=== PATIENT | male | born 1945 | race Caucasian/White ===

== ENCOUNTER 2019-10-31 12:00 | Inpatient (IN) ==
[2019-10-31] MEDS ORDERED: methylPREDNISolone 125 MG/2 ML VIAL IVP ONE (12:15)
[2019-10-31] MEDS ORDERED: Ipratropium/Albuterol Neb 3 ML IH ONE (12:15)
[2019-10-31] MEDS ORDERED: Isovue-370 500 ML BOTTLE IVP ONE (12:16)
[2019-10-31 12:36] LABS: INR 1.1; Prothrombin Time 12.5 Seconds (9.4-12.1)
[2019-10-31 12:39] LABS: Activated Partial Thrombo Time 31.5 Seconds (26.0-36.0)
[2019-10-31 12:52] LABS: Hematocrit 51.7 % (37.5-50.1); Hemoglobin 18.1 g/dL (12.9-16.9); Lymphocytes # 1.9 K/mcL (0.6-4.6); Mean Corpuscular Volume 91.5 fL (83.0-100.0); Mean Platelet Volume 11.4 fL (9.4-12.4); Monocytes # 0.4 K/mcL (0.0-1.3); Platelet Count 145 K/mcL (140-400); Red Blood Count 5.65 M/mcL (4.19-5.50); Red Cell Distribution Width 12.7 % (11.5-14.5); White Blood Count 4.6 K/mcL (4.3-11.1)
[2019-10-31 12:57] LABS: BUN/Creatinine Ratio 23 (6-26); Blood Urea Nitrogen 20 mg/dL (8-23); Carbon Dioxide 26 mEq/L (23-29); Chloride 95 mEq/L (98-107); Glucose 155 mg/dL (70-105); Osmolality,Calculated 288 (280-300); Potassium 3.8 mEq/L (3.5-5.1); Sodium 136 mEq/L (136-145); Troponin I < 0.03 ng/mL (< 0.04); eGFR For African Americans > 60 (> 60); eGFR For Non-African Americans > 60 (> 60)
[2019-10-31] MEDS ORDERED: 0.9 % Sodium Chloride 1,000 ML IVC ONE ×2 (13:14→14:49)
[2019-10-31 13:59] LABS: Neutrophils # 2.3 K/mcL (1.6-8.9); Reactive Lymphocytes Present (Not Present)
[2019-10-31 14:00] LABS: Platelet Estimate Normal (Normal)
[2019-10-31] MEDS ORDERED: Aspirin 81 MG TAB.CHEW PO STA (14:51)
[2019-10-31] MEDS ORDERED: Vancomycin (wt based) 1,000 MG VIAL IVPB SCH (15:00)
[2019-10-31] MEDS ORDERED: Naloxone 0.4 MG/ML INJ IVP PRN (15:51)
[2019-10-31] MEDS ORDERED: Ipratropium/Albuterol Neb 3 ML IH PRN (15:53)
[2019-10-31] MEDS ORDERED: Piperacillin/Tazobactam 3.375 GM in 0.9 % Sodium Chloride Mini Bag 100 ML IVPB ONE (16:00)
[2019-10-31] MEDS: 0.9 % Sodium Chloride 1,000 ML IVC SCH (18:01)
[2019-10-31] MEDS: Ipratropium/Albuterol Neb 3 ML IH SCH ×2 (18:28→22:34)
[2019-10-31 20:09] LABS: Adenovirus Not Detected (Not Detect); Bordetella Pertussis Not Detected (Not Detect); Chlamydophila pneumoniae Not Detected (Not Detect); Coronavirus 229E Not Detected (Not Detect); Coronavirus HKU1 Not Detected (Not Detect); Coronavirus NL63 Not Detected (Not Detect); Coronavirus OC43 Not Detected (Not Detect); Human Metapneumovirus Not Detected (Not Detect); Human Rhinovirus/Enterovirus Not Detected (Not Detect); Influenza A Subtype 2009 H1 Not Detected (Not Detect); Influenza B Not Detected (Not Detect); Mycoplasma pneumoniae Not Detected (Not Detect); Parainfluenza Virus 1 Not Detected (Not Detect); Parainfluenza Virus 2 Not Detected (Not Detect); Parainfluenza Virus 3 Not Detected (Not Detect); Parainfluenza Virus 4 Not Detected (Not Detect); Respiratory Syncytial Virus Not Detected (Not Detect)
[2019-11-01 02:02] LABS: BUN/Creatinine Ratio 24 (6-26); Blood Urea Nitrogen 17 mg/dL (8-23); Calcium 7.8 mg/dL (8.6-10.3); Carbon Dioxide 22 mEq/L (23-29); Chloride 104 mEq/L (98-107); Glucose 236 mg/dL (70-105); Osmolality,Calculated 287 (280-300); Potassium 3.9 mEq/L (3.5-5.1); Sodium 134 mEq/L (136-145); eGFR For African Americans > 60 (> 60); eGFR For Non-African Americans > 60 (> 60)
[2019-11-01] MEDS: Ipratropium/Albuterol Neb 3 ML IH SCH ×4 (03:47→21:23)
[2019-11-01] MEDS: 0.9 % Sodium Chloride 1,000 ML IVC SCH (04:33)
[2019-11-01 04:55] LABS: Bilirubin,Urine Negative (Negative); Blood,Urine Negative (Negative); Clarity,Urine Clear (Clear); Color,Urine Yellow (Yellow); Glucose,Urine (UA) 250 mg/dL (Normal); Ketones,Urine 15 mg/dL (Negative); Leukocyte Esterase,Urine Negative (Negative); Nitrite,Urine Negative (Negative); Protein,Urine Negative (Neg-Trace); Specific Gravity,Urine > 1.030 (1.010-1.025); Urobilinogen,Urine Normal (Normal)
[2019-11-01] MEDS: MethylPREDNISolone 40 MG/ML VIAL IVP SCH ×2 (05:28→18:13)
[2019-11-01] MEDS: Insulin LISPRO 300 UNITS/3 ML VIAL SQ SCH ×4 (10:11→22:20)
[2019-11-01] MEDS: Lisinopril 20 MG TABLET PO SCH (12:10)
[2019-11-01] MEDS: risperiDONE 0.25 MG TABLET PO SCH (12:10)
[2019-11-01] MEDS: Loratadine 10 MG TABLET PO SCH (12:13)
[2019-11-01] MEDS: Aspirin 81 MG TAB.CHEW PO SCH (12:13)
[2019-11-01] MEDS: Piperacillin/Tazobactam 3.375 GM in 0.9 % Sodium Chloride Mini Bag 100 ML IVPB SCH ×2 (12:13→20:02)
[2019-11-01] MEDS: *HR* Heparin 5,000 UNIT/ML VIAL SQ SCH ×2 (14:22→22:24)
[2019-11-01] MEDS: Budesonide/Formoterol 160/4.5 1 PUFF INH IH SCH ×2 (16:05→21:23)
[2019-11-01] MEDS ORDERED: Acetaminophen 325 MG TABLET PO PRN (19:47)
[2019-11-02] MEDS: Ipratropium/Albuterol Neb 3 ML IH SCH ×4 (03:34→21:54)
[2019-11-02] MEDS: Piperacillin/Tazobactam 3.375 GM in 0.9 % Sodium Chloride Mini Bag 100 ML IVPB SCH ×3 (04:19→20:44)
[2019-11-02] MEDS: *HR* Heparin 5,000 UNIT/ML VIAL SQ SCH ×2 (06:00→15:06)
[2019-11-02] MEDS: Insulin LISPRO 300 UNITS/3 ML VIAL SQ SCH ×4 (08:32→20:45)
[2019-11-02] MEDS ORDERED: Benzonatate 100 MG CAPSULE PO PRN (09:23)
[2019-11-02] MEDS: risperiDONE 0.25 MG TABLET PO SCH (10:28)
[2019-11-02] MEDS: Lisinopril 20 MG TABLET PO SCH (10:28)
[2019-11-02] MEDS: predniSONE 20 MG TABLET PO SCH (10:28)
[2019-11-02] MEDS: Aspirin 81 MG TAB.CHEW PO SCH (10:28)
[2019-11-02] MEDS: Loratadine 10 MG TABLET PO SCH (10:29)
[2019-11-02] MEDS: Budesonide/Formoterol 160/4.5 1 PUFF INH IH SCH ×2 (11:00→21:54)
[2019-11-02] MEDS ORDERED: Furosemide 20 MG/2 ML VIAL IVP ONE (11:22)
[2019-11-03] MEDS: Ipratropium/Albuterol Neb 3 ML IH SCH ×4 (03:29→21:44)
[2019-11-03] MEDS: *HR* Heparin 5,000 UNIT/ML VIAL SQ SCH ×4 (04:49→22:21)
[2019-11-03] MEDS: Piperacillin/Tazobactam 3.375 GM in 0.9 % Sodium Chloride Mini Bag 100 ML IVPB SCH ×3 (04:58→20:01)
[2019-11-03] MEDS: Insulin LISPRO 300 UNITS/3 ML VIAL SQ SCH ×4 (07:30→21:16)
[2019-11-03] MEDS: Aspirin 81 MG TAB.CHEW PO SCH (07:35)
[2019-11-03] MEDS: Lisinopril 20 MG TABLET PO SCH (07:35)
[2019-11-03] MEDS: risperiDONE 0.25 MG TABLET PO SCH (07:35)
[2019-11-03] MEDS: predniSONE 20 MG TABLET PO SCH (07:35)
[2019-11-03] MEDS: Loratadine 10 MG TABLET PO SCH (07:35)
[2019-11-03 08:11] LABS: ABG Base Excess 3 mEq/L (-2 to 3); ABG HCO3 26 mEq/L (21-27); ABG Oxygen Saturation 90 % (95-98); ABG PCO2 33 mmHg (35-45); ABG PO2 52 mmHg (85-104); ABG TCO2 27 mEq/L (20-26)
[2019-11-03 09:31] LABS: Basophils % 0.2 %; Hematocrit 40.8 % (37.5-50.1); Immature Granulocytes % 0.7 % (0-4); Lymphocytes # 0.6 K/mcL (0.6-4.6); Lymphocytes % 13.5 %; Mean Corpuscular Hemoglobin 32.2 pg (28.0-33.3); Mean Corpuscular Volume 89.5 fL (83.0-100.0); Monocytes # 0.2 K/mcL (0.0-1.3); Monocytes % 5.4 %; Platelet Count 141 K/mcL (140-400); Red Blood Count 4.56 M/mcL (4.19-5.50); Red Cell Distribution Width 12.6 % (11.5-14.5); Segmented Neutrophils % 80.2 %; White Blood Count 4.4 K/mcL (4.3-11.1)
[2019-11-03 09:45] LABS: BUN/Creatinine Ratio 23 (6-26); Blood Urea Nitrogen 17 mg/dL (8-23); Calcium 8.2 mg/dL (8.6-10.3); Carbon Dioxide 24 mEq/L (23-29); Chloride 99 mEq/L (98-107); Glucose 149 mg/dL (70-105); Osmolality,Calculated 278 (280-300); Potassium 3.6 mEq/L (3.5-5.1); Sodium 132 mEq/L (136-145); eGFR For African Americans > 60 (> 60); eGFR For Non-African Americans > 60 (> 60)
[2019-11-03 10:10] LABS: Hemoglobin 14.7 g/dL (12.9-16.9); Neutrophils # 3.5 K/mcL (1.6-8.9)
[2019-11-03 10:19] LABS: Platelet Estimate Normal (Normal); Reactive Lymphocytes Present (Not Present)
[2019-11-03] MEDS: Budesonide/Formoterol 160/4.5 1 PUFF INH IH SCH ×2 (10:39→21:44)
[2019-11-03 14:52] LABS: ABG Base Excess 3 mEq/L (-2 to 3); ABG HCO3 27 mEq/L (21-27); ABG Oxygen Saturation 91 % (95-98); ABG PCO2 36 mmHg (35-45); ABG PH 7.48 pH Units (7.32-7.45); ABG PO2 57 mmHg (85-104); ABG TCO2 28 mEq/L (20-26)
[2019-11-04] MEDS: Ipratropium/Albuterol Neb 3 ML IH SCH ×4 (04:12→21:31)
[2019-11-04] MEDS: *HR* Heparin 5,000 UNIT/ML VIAL SQ SCH ×3 (05:07→22:59)
[2019-11-04] MEDS: Piperacillin/Tazobactam 3.375 GM in 0.9 % Sodium Chloride Mini Bag 100 ML IVPB SCH ×3 (05:07→20:22)
[2019-11-04] MEDS: Insulin LISPRO 300 UNITS/3 ML VIAL SQ SCH ×4 (08:09→21:24)
[2019-11-04] MEDS: predniSONE 20 MG TABLET PO SCH (08:10)
[2019-11-04] MEDS: Aspirin 81 MG TAB.CHEW PO SCH (08:10)
[2019-11-04] MEDS: risperiDONE 0.25 MG TABLET PO SCH (08:10)
[2019-11-04] MEDS: Loratadine 10 MG TABLET PO SCH (08:10)
[2019-11-04] MEDS: Lisinopril 20 MG TABLET PO SCH (08:10)
[2019-11-04] MEDS: Budesonide/Formoterol 160/4.5 1 PUFF INH IH SCH ×2 (10:29→21:32)
[2019-11-05] MEDS: Ipratropium/Albuterol Neb 3 ML IH SCH ×4 (04:04→21:49)
[2019-11-05] MEDS: *HR* Heparin 5,000 UNIT/ML VIAL SQ SCH ×3 (06:24→21:39)
[2019-11-05] MEDS: Insulin LISPRO 300 UNITS/3 ML VIAL SQ SCH ×4 (09:29→21:35)
[2019-11-05] MEDS: Loratadine 10 MG TABLET PO SCH (09:35)
[2019-11-05] MEDS: Aspirin 81 MG TAB.CHEW PO SCH (09:35)
[2019-11-05] MEDS: levoFLOXacin 750 MG TABLET PO SCH (09:35)
[2019-11-05] MEDS: Lisinopril 20 MG TABLET PO SCH (09:35)
[2019-11-05] MEDS: risperiDONE 0.25 MG TABLET PO SCH (09:35)
[2019-11-05] MEDS: predniSONE 20 MG TABLET PO SCH (09:36)
[2019-11-05] MEDS: Budesonide/Formoterol 160/4.5 1 PUFF INH IH SCH ×2 (10:04→21:49)
[2019-11-06 02:20] LABS: Basophils % 0.3 %; Eosinophils % 0.2 %; Hematocrit 44.2 % (37.5-50.1); Hemoglobin 15.6 g/dL (12.9-16.9); Immature Granulocytes % 0.8 % (0-4); Lymphocytes # 0.9 K/mcL (0.6-4.6); Lymphocytes % 13.8 %; Mean Corpuscular HGB Conc 35.3 g/dL (31.6-35.5); Mean Corpuscular Hemoglobin 32.2 pg (28.0-33.3); Mean Corpuscular Volume 91.3 fL (83.0-100.0); Mean Platelet Volume 10.9 fL (9.4-12.4); Monocytes # 0.4 K/mcL (0.0-1.3); Neutrophils # 4.9 K/mcL (1.6-8.9); Platelet Count 264 K/mcL (140-400); Red Blood Count 4.84 M/mcL (4.19-5.50); Red Cell Distribution Width 12.7 % (11.5-14.5); Segmented Neutrophils % 77.9 %; White Blood Count 6.3 K/mcL (4.3-11.1)
[2019-11-06 02:54] LABS: Platelet Estimate Normal (Normal); Reactive Lymphocytes Present (Not Present)
[2019-11-06] MEDS: Ipratropium/Albuterol Neb 3 ML IH SCH ×6 (03:29→22:54)
[2019-11-06] MEDS: *HR* Heparin 5,000 UNIT/ML VIAL SQ SCH ×3 (05:50→21:15)
[2019-11-06] MEDS: Insulin LISPRO 300 UNITS/3 ML VIAL SQ SCH ×4 (08:00→21:16)
[2019-11-06] MEDS: Budesonide/Formoterol 160/4.5 1 PUFF INH IH SCH (10:30)
[2019-11-06 10:35] LABS: BUN/Creatinine Ratio 29 (6-26); Blood Urea Nitrogen 22 mg/dL (8-23); Calcium 8.7 mg/dL (8.6-10.3); Carbon Dioxide 28 mEq/L (23-29); Chloride 99 mEq/L (98-107); Glucose 201 mg/dL (70-105); Osmolality,Calculated 293 (280-300); Potassium 3.6 mEq/L (3.5-5.1); Sodium 137 mEq/L (136-145); eGFR For African Americans > 60 (> 60); eGFR For Non-African Americans > 60 (> 60)
[2019-11-06] MEDS ORDERED: Azithromycin 250 MG TABLET PO SCH (11:00)
[2019-11-06] MEDS ORDERED: Isovue-370 500 ML BOTTLE IVP ONE (11:01)
[2019-11-06] MEDS ORDERED: Albuterol 2.5 MG/3 ML NEBULIZER IH PRN (11:03)
[2019-11-06] MEDS: Aspirin 81 MG TAB.CHEW PO SCH (11:29)
[2019-11-06] MEDS: Lisinopril 20 MG TABLET PO SCH (11:29)
[2019-11-06] MEDS: Loratadine 10 MG TABLET PO SCH (11:29)
[2019-11-06] MEDS: predniSONE 20 MG TABLET PO SCH (11:29)
[2019-11-06] MEDS: risperiDONE 0.25 MG TABLET PO SCH (11:30)
[2019-11-06] MEDS: Doxycycline 100 MG CAPSULE PO SCH ×2 (11:30→21:15)
[2019-11-06] MEDS: levoFLOXacin 750 MG TABLET PO SCH (14:52)
[2019-11-07 01:54] LABS: Hematocrit 44.3 % (37.5-50.1); Hemoglobin 15.1 g/dL (12.9-16.9); Mean Corpuscular HGB Conc 34.1 g/dL (31.6-35.5); Mean Corpuscular Hemoglobin 32.6 pg (28.0-33.3); Mean Corpuscular Volume 95.7 fL (83.0-100.0); Platelet Count 271 K/mcL (140-400); Red Blood Count 4.63 M/mcL (4.19-5.50); Red Cell Distribution Width 12.8 % (11.5-14.5); White Blood Count 7.6 K/mcL (4.3-11.1)
[2019-11-07 02:23] LABS: BUN/Creatinine Ratio 29 (6-26); Blood Urea Nitrogen 22 mg/dL (8-23); Calcium 8.9 mg/dL (8.6-10.3); Carbon Dioxide 25 mEq/L (23-29); Chloride 101 mEq/L (98-107); Glucose 151 mg/dL (70-105); Osmolality,Calculated 284 (280-300); Potassium 4.3 mEq/L (3.5-5.1); Sodium 134 mEq/L (136-145); eGFR For African Americans > 60 (> 60); eGFR For Non-African Americans > 60 (> 60)
[2019-11-07] MEDS: Ipratropium/Albuterol Neb 3 ML IH SCH ×6 (03:38→23:12)
[2019-11-07] MEDS: *HR* Heparin 5,000 UNIT/ML VIAL SQ SCH ×3 (05:50→21:00)
[2019-11-07] MEDS: Loratadine 10 MG TABLET PO SCH (08:06)
[2019-11-07] MEDS: risperiDONE 0.25 MG TABLET PO SCH (08:07)
[2019-11-07] MEDS: Lisinopril 20 MG TABLET PO SCH (08:08)
[2019-11-07] MEDS: Doxycycline 100 MG CAPSULE PO SCH ×2 (08:08→20:58)
[2019-11-07] MEDS: Aspirin 81 MG TAB.CHEW PO SCH (08:08)
[2019-11-07] MEDS: predniSONE 20 MG TABLET PO SCH (08:08)
[2019-11-07] MEDS: Insulin LISPRO 300 UNITS/3 ML VIAL SQ SCH ×4 (08:09→22:11)
[2019-11-07] MEDS ORDERED: Furosemide 20 MG TABLET PO PRN (09:50)
[2019-11-07 10:17] LABS: INR 1.2; Prothrombin Time 13.5 Seconds (9.4-12.1)
[2019-11-07 11:29] LABS: Adenovirus Not Detected (Not Detect); Bordetella Pertussis Not Detected (Not Detect); Chlamydophila pneumoniae Not Detected (Not Detect); Coronavirus 229E Not Detected (Not Detect); Coronavirus HKU1 Not Detected (Not Detect); Coronavirus NL63 Not Detected (Not Detect); Coronavirus OC43 Not Detected (Not Detect); Human Metapneumovirus Not Detected (Not Detect); Human Rhinovirus/Enterovirus Not Detected (Not Detect); Influenza A Subtype 2009 H1 Not Detected (Not Detect); Influenza B Not Detected (Not Detect); Mycoplasma pneumoniae Not Detected (Not Detect); Parainfluenza Virus 1 Not Detected (Not Detect); Parainfluenza Virus 2 Not Detected (Not Detect); Parainfluenza Virus 3 Not Detected (Not Detect); Parainfluenza Virus 4 Not Detected (Not Detect); Respiratory Syncytial Virus Not Detected (Not Detect)
[2019-11-07] MEDS ORDERED: Furosemide 20 MG TABLET PO ONE (15:00)
[2019-11-08] MEDS: Ipratropium/Albuterol Neb 3 ML IH SCH ×6 (03:30→23:11)
[2019-11-08 04:09] LABS: BUN/Creatinine Ratio 31 (6-26); Blood Urea Nitrogen 27 mg/dL (8-23); Calcium 8.7 mg/dL (8.6-10.3); Carbon Dioxide 25 mEq/L (23-29); Chloride 102 mEq/L (98-107); Glucose 179 mg/dL (70-105); Osmolality,Calculated 292 (280-300); Potassium 4.1 mEq/L (3.5-5.1); Sodium 136 mEq/L (136-145); eGFR For African Americans > 60 (> 60); eGFR For Non-African Americans > 60 (> 60)
[2019-11-08 04:10] LABS: Hemoglobin 14.7 g/dL (12.9-16.9); Mean Corpuscular HGB Conc 33.4 g/dL (31.6-35.5); Mean Corpuscular Volume 95.9 fL (83.0-100.0); Mean Platelet Volume 10.5 fL (9.4-12.4); Platelet Count 286 K/mcL (140-400); Red Blood Count 4.59 M/mcL (4.19-5.50); Red Cell Distribution Width 12.8 % (11.5-14.5); White Blood Count 10.3 K/mcL (4.3-11.1)
[2019-11-08] MEDS: *HR* Heparin 5,000 UNIT/ML VIAL SQ SCH ×3 (05:50→22:06)
[2019-11-08] MEDS ORDERED: Furosemide 20 MG TABLET PO SCH (09:00)
[2019-11-08] MEDS ORDERED: *HR* Propofol 200 MG/20 ML VIAL IVP ONE (10:09)
[2019-11-08] MEDS ORDERED: Lidocaine -MPF 2% 2 ML VIAL ONE (10:09)
[2019-11-08] MEDS ORDERED: Lidocaine -MPF 4% 5 ML AMPUL ONE (10:09)
[2019-11-08] MEDS ORDERED: *HR* Succinylcholine 200 MG/10 ML VIAL IVP ONE (10:09)
[2019-11-08] MEDS ORDERED: Dexamethasone 4 MG/ML VIAL ONE (10:11)
[2019-11-08] MEDS ORDERED: Ondansetron 4 MG/2 ML VIAL ONE (10:11)
[2019-11-08] MEDS: Insulin LISPRO 300 UNITS/3 ML VIAL SQ SCH ×4 (10:17→22:06)
[2019-11-08] MEDS ORDERED: Propofol 500 MG/50 ML INFUS..BTL ONE (10:23)
[2019-11-08] MEDS ORDERED: Ipratropium/Albuterol Neb 3 ML ONE (10:23)
[2019-11-08] MEDS ORDERED: *HR* Rocuronium Bromide 50 MG/5 ML VIAL ONE (10:25)
[2019-11-08] MEDS: Lisinopril 20 MG TABLET PO SCH (11:54)
[2019-11-08] MEDS: Doxycycline 100 MG CAPSULE PO SCH ×2 (11:58→20:02)
[2019-11-08] MEDS: Loratadine 10 MG TABLET PO SCH (11:58)
[2019-11-08] MEDS: risperiDONE 0.25 MG TABLET PO SCH (11:58)
[2019-11-08] MEDS: predniSONE 20 MG TABLET PO SCH (11:58)
[2019-11-08] MEDS: Aspirin 81 MG TAB.CHEW PO SCH (11:58)
[2019-11-08 19:16] LABS: Appearance of Body Fluid Clear (Clear); Volume of Body Fluid 15 mL
[2019-11-09 01:01] LABS: Hematocrit 41.7 % (37.5-50.1); Hemoglobin 14.4 g/dL (12.9-16.9); Mean Corpuscular HGB Conc 34.5 g/dL (31.6-35.5); Mean Corpuscular Hemoglobin 32.1 pg (28.0-33.3); Mean Corpuscular Volume 92.9 fL (83.0-100.0); Mean Platelet Volume 10.7 fL (9.4-12.4); Platelet Count 337 K/mcL (140-400); Red Blood Count 4.49 M/mcL (4.19-5.50); White Blood Count 8.7 K/mcL (4.3-11.1)
[2019-11-09 01:20] LABS: BUN/Creatinine Ratio 28 (6-26); Blood Urea Nitrogen 26 mg/dL (8-23); Calcium 8.6 mg/dL (8.6-10.3); Carbon Dioxide 24 mEq/L (23-29); Chloride 100 mEq/L (98-107); Glucose 283 mg/dL (70-105); Osmolality,Calculated 287 (280-300); Potassium 4.8 mEq/L (3.5-5.1); Sodium 131 mEq/L (136-145); eGFR For African Americans > 60 (> 60); eGFR For Non-African Americans > 60 (> 60)
[2019-11-09] MEDS: Ipratropium/Albuterol Neb 3 ML IH SCH ×6 (03:45→23:47)
[2019-11-09] MEDS: *HR* Heparin 5,000 UNIT/ML VIAL SQ SCH ×3 (06:05→21:51)
[2019-11-09] MEDS: Lisinopril 20 MG TABLET PO SCH (08:40)
[2019-11-09] MEDS: Doxycycline 100 MG CAPSULE PO SCH (08:40)
[2019-11-09] MEDS: Aspirin 81 MG TAB.CHEW PO SCH (08:40)
[2019-11-09] MEDS: risperiDONE 0.25 MG TABLET PO SCH (08:40)
[2019-11-09] MEDS: predniSONE 20 MG TABLET PO SCH (08:40)
[2019-11-09] MEDS: Loratadine 10 MG TABLET PO SCH (08:42)
[2019-11-09] MEDS: Insulin LISPRO 300 UNITS/3 ML VIAL SQ SCH ×4 (08:43→21:52)
[2019-11-09] MEDS ORDERED: Furosemide 40 MG/4 ML VIAL IVP SCH (09:00)
[2019-11-09] MEDS: Furosemide 40 MG/4 ML VIAL IVP SCH (16:01)
[2019-11-10] MEDS: Ipratropium/Albuterol Neb 3 ML IH SCH ×6 (03:24→23:23)
[2019-11-10] MEDS: *HR* Heparin 5,000 UNIT/ML VIAL SQ SCH ×3 (06:36→22:45)
[2019-11-10 08:21] LABS: Hematocrit 43.1 % (37.5-50.1); Hemoglobin 14.9 g/dL (12.9-16.9); Mean Corpuscular HGB Conc 34.6 g/dL (31.6-35.5); Mean Corpuscular Hemoglobin 32.3 pg (28.0-33.3); Mean Corpuscular Volume 93.5 fL (83.0-100.0); Mean Platelet Volume 10.5 fL (9.4-12.4); Platelet Count 321 K/mcL (140-400); Red Blood Count 4.61 M/mcL (4.19-5.50); Red Cell Distribution Width 13.2 % (11.5-14.5); White Blood Count 11.1 K/mcL (4.3-11.1)
[2019-11-10 08:24] LABS: BUN/Creatinine Ratio 33 (6-26); Blood Urea Nitrogen 29 mg/dL (8-23); Calcium 8.9 mg/dL (8.6-10.3); Carbon Dioxide 27 mEq/L (23-29); Chloride 101 mEq/L (98-107); Glucose 166 mg/dL (70-105); Osmolality,Calculated 294 (280-300); Potassium 4.2 mEq/L (3.5-5.1); Sodium 137 mEq/L (136-145); eGFR For African Americans > 60 (> 60); eGFR For Non-African Americans > 60 (> 60)
[2019-11-10] MEDS: Insulin LISPRO 300 UNITS/3 ML VIAL SQ SCH ×4 (10:04→22:45)
[2019-11-10] MEDS: Furosemide 40 MG/4 ML VIAL IVP SCH ×2 (10:10→17:14)
[2019-11-10] MEDS: predniSONE 20 MG TABLET PO SCH (10:12)
[2019-11-10] MEDS: risperiDONE 0.25 MG TABLET PO SCH (10:12)
[2019-11-10] MEDS: Aspirin 81 MG TAB.CHEW PO SCH (10:12)
[2019-11-10] MEDS: Lisinopril 20 MG TABLET PO SCH (10:12)
[2019-11-10] MEDS: Loratadine 10 MG TABLET PO SCH (10:13)
[2019-11-11] MEDS: Ipratropium/Albuterol Neb 3 ML IH SCH ×6 (03:20→23:58)
[2019-11-11 06:20] LABS: Hematocrit 45.4 % (37.5-50.1); Hemoglobin 15.5 g/dL (12.9-16.9); Mean Corpuscular HGB Conc 34.1 g/dL (31.6-35.5); Mean Corpuscular Hemoglobin 31.6 pg (28.0-33.3); Mean Corpuscular Volume 92.7 fL (83.0-100.0); Mean Platelet Volume 10.5 fL (9.4-12.4); Platelet Count 338 K/mcL (140-400); Red Cell Distribution Width 13.2 % (11.5-14.5); White Blood Count 11.3 K/mcL (4.3-11.1)
[2019-11-11 06:38] LABS: BUN/Creatinine Ratio 36 (6-26); Blood Urea Nitrogen 32 mg/dL (8-23); Calcium 9.2 mg/dL (8.6-10.3); Carbon Dioxide 27 mEq/L (23-29); Chloride 97 mEq/L (98-107); Glucose 168 mg/dL (70-105); Osmolality,Calculated 289 (280-300); Sodium 134 mEq/L (136-145); eGFR For African Americans > 60 (> 60); eGFR For Non-African Americans > 60 (> 60)
[2019-11-11] MEDS: *HR* Heparin 5,000 UNIT/ML VIAL SQ SCH ×3 (06:42→20:54)
[2019-11-11] MEDS: predniSONE 20 MG TABLET PO SCH (08:50)
[2019-11-11] MEDS: Aspirin 81 MG TAB.CHEW PO SCH (08:50)
[2019-11-11] MEDS: Lisinopril 20 MG TABLET PO SCH (08:50)
[2019-11-11] MEDS: Loratadine 10 MG TABLET PO SCH (08:50)
[2019-11-11] MEDS: risperiDONE 0.25 MG TABLET PO SCH (08:50)
[2019-11-11] MEDS: Insulin LISPRO 300 UNITS/3 ML VIAL SQ SCH ×4 (08:52→20:54)
[2019-11-11 20:09] LABS: ABG Base Excess -2 mEq/L (-2 to 3); ABG HCO3 20 mEq/L (21-27); ABG Oxygen Saturation 94 % (95-98); ABG PCO2 27 mmHg (35-45); ABG PH 7.47 pH Units (7.32-7.45); ABG PO2 66 mmHg (85-104); ABG TCO2 20 mEq/L (20-26)
[2019-11-12 02:28] LABS: Hematocrit 45.4 % (37.5-50.1); Hemoglobin 15.8 g/dL (12.9-16.9); Mean Corpuscular HGB Conc 34.8 g/dL (31.6-35.5); Mean Corpuscular Volume 92.1 fL (83.0-100.0); Mean Platelet Volume 10.7 fL (9.4-12.4); Platelet Count 331 K/mcL (140-400); Red Blood Count 4.93 M/mcL (4.19-5.50); Red Cell Distribution Width 13.2 % (11.5-14.5); White Blood Count 11.8 K/mcL (4.3-11.1)
[2019-11-12 02:47] LABS: BUN/Creatinine Ratio 33 (6-26); Blood Urea Nitrogen 29 mg/dL (8-23); Carbon Dioxide 25 mEq/L (23-29); Chloride 97 mEq/L (98-107); Glucose 219 mg/dL (70-105); Osmolality,Calculated 287 (280-300); Potassium 4.4 mEq/L (3.5-5.1); Sodium 132 mEq/L (136-145); eGFR For African Americans > 60 (> 60); eGFR For Non-African Americans > 60 (> 60)
[2019-11-12] MEDS: Ipratropium/Albuterol Neb 3 ML IH SCH ×6 (03:20→23:46)
[2019-11-12] MEDS: *HR* Heparin 5,000 UNIT/ML VIAL SQ SCH ×2 (06:12→15:58)
[2019-11-12] MEDS: Insulin LISPRO 300 UNITS/3 ML VIAL SQ SCH ×4 (09:21→21:04)
[2019-11-12] MEDS: Aspirin 81 MG TAB.CHEW PO SCH (09:21)
[2019-11-12] MEDS: predniSONE 20 MG TABLET PO SCH (09:21)
[2019-11-12] MEDS: Loratadine 10 MG TABLET PO SCH (09:21)
[2019-11-12] MEDS: Lisinopril 20 MG TABLET PO SCH (09:21)
[2019-11-12] MEDS: risperiDONE 0.25 MG TABLET PO SCH (09:22)
[2019-11-12 16:43] LABS: Hematocrit 45.8 % (37.5-50.1); Hemoglobin 15.5 g/dL (12.9-16.9)
[2019-11-12 21:49] LABS: Bilirubin,Urine Negative (Negative); Blood,Urine Large (Negative); Clarity,Urine Cloudy (Clear); Color,Urine Red (Yellow); Glucose,Urine (UA) Normal (Normal); Ketones,Urine Negative (Negative); Leukocyte Esterase,Urine Small (Negative); Nitrite,Urine Negative (Negative); PH,Urine 7.5 pH Units (5.0-8.0); Protein,Urine 30 mg/dL (Neg-Trace); Specific Gravity,Urine 1.018 (1.010-1.025); Urobilinogen,Urine Normal (Normal)
[2019-11-12 21:50] LABS: Bacteria,Urine None Seen per hpf (None-Few); Hyaline Casts,Urine None Seen per lpf (None-Few); RBC,Urine TNTC per hpf (0-3); Squamous Epithelial Cell,Urine Moderate per lpf (None-Few)
[2019-11-13 00:48] LABS: Hematocrit 45.3 % (37.5-50.1); Hemoglobin 15.7 g/dL (12.9-16.9); Mean Corpuscular HGB Conc 34.7 g/dL (31.6-35.5); Mean Corpuscular Hemoglobin 32.4 pg (28.0-33.3); Mean Corpuscular Volume 93.6 fL (83.0-100.0); Mean Platelet Volume 10.7 fL (9.4-12.4); Platelet Count 316 K/mcL (140-400); Red Blood Count 4.84 M/mcL (4.19-5.50); White Blood Count 13.7 K/mcL (4.3-11.1)
[2019-11-13 01:09] LABS: BUN/Creatinine Ratio 23 (6-26); Blood Urea Nitrogen 26 mg/dL (8-23); Calcium 8.8 mg/dL (8.6-10.3); Carbon Dioxide 24 mEq/L (23-29); Chloride 100 mEq/L (98-107); Glucose 221 mg/dL (70-105); Osmolality,Calculated 284 (280-300); Potassium 4.9 mEq/L (3.5-5.1); Sodium 131 mEq/L (136-145); eGFR For African Americans > 60 (> 60); eGFR For Non-African Americans > 60 (> 60)
[2019-11-13] MEDS: Ipratropium/Albuterol Neb 3 ML IH SCH ×4 (03:51→16:00)
[2019-11-13] MEDS: Loratadine 10 MG TABLET PO SCH (08:30)
[2019-11-13] MEDS: Insulin LISPRO 300 UNITS/3 ML VIAL SQ SCH ×3 (08:30→18:52)
[2019-11-13] MEDS: Lisinopril 20 MG TABLET PO SCH (08:31)
[2019-11-13] MEDS: Aspirin 81 MG TAB.CHEW PO SCH (08:31)
[2019-11-13] MEDS: predniSONE 20 MG TABLET PO SCH (08:31)
[2019-11-13] MEDS: risperiDONE 0.25 MG TABLET PO SCH (08:31)
[2019-11-13 15:40] VITALS: BP 102/76
[2019-11-13] MEDS ORDERED: FLU Vac QV 19-20 (6Month+)/PF 0.5 ML SYRINGE IM ONE (17:51)
== END 2019-11-13 19:05 | DRG 139 ==
LOC: 2NENU 12:00 → EMEROOARM 12:00 → SUATTDRO 16:18 → 2NENU 17:01
PROVIDERS: ADMIT Internal Medicine; ATTEND Family Medicine